=== PATIENT | male | born 1965 | race Caucasian/White ===

== ENCOUNTER 2019-02-08 09:26 | Day surgery (SDC) | payer BC ==
[2019-02-03 17:57] VITALS: BMI 27.0
[2019-02-08 09:56] VITALS: TEMP 98.1
[2019-02-08 15:48] VITALS: BP 110/62; PULSE 70
== END 2019-02-08 12:15 | disposition home or self-care (01) ==
LOC: FASU-ENDO 09:26
PROVIDERS: ATTEND Internal Medicine Gastroenterology
PROC: 0DJD8ZZ Inspection of Lower Intestinal Tract, Via Natural or Artificial Opening Endoscopic (ICD-10-PCS; principal; 2019-02-08 11:24)
DX: Z12.11 Encounter for screening for malignant neoplasm of colon (principal); Z83.71 Family history of colonic polyps